=== PATIENT | male | born 1955 | race Caucasian/White ===

== ENCOUNTER 2025-01-01 12:07 | Emergency (ER) | payer MEDICARE, BC, SELFPAY ==
[2025-01-01 12:12] VITALS: BP 128/86; PULSE 63; RESP 18; TEMP 37; O2SAT 94
--- NOTE | 2025-01-01 12:45 | DI.RAD_ITS ---
Exam(s) XR CHEST 2V PA LATERAL EXAM: XR CHEST 2V PA LATERAL CLINICAL HISTORY: Cough with sputum. TECHNIQUE: 2D digital imaging was performed. COMPARISON: No exams were available for comparison FINDINGS: 2 views: Heart size is normal. The mediastinum is not widened. There is a somewhat tortuous descending thoracic aorta noted. Lungs are clear. No infiltrates nor pleural effusions. IMPRESSION: No acute pulmonary findings. DATA REPOSITORY: RADIATION DOSE DELIVERED:
--- NOTE | 2025-01-01 14:00 | W.ED.GENAD ---
Discharge Plan Disposition Patient Disposition: Home Condition: Stable Discharge Details Clinical Impression: Cough productive of clear sputum Primary Care Provider: [facility],Local ED Provider: Deirdre Kramer Home Meds and New Rx's Prescriptions: New azithromycin 250 mg tablet 250 mg PO DAILY 4 Days Qty: 4 0RF Rx Instructions: start on day 2 of therapy (01/02/2025) benzonatate 100 mg capsule 100 mg PO TID PRNQty: 14 0RF No Action lisinopril [Zestril] 5 MG tablet 20 mg PO DAILY chlorthalidone 25 MG tablet 25 mg PO DAILY Discharge Instructions Instructions: Acute bronchitis Additional Instructions: You were seen in the emergency department today for evaluation of a persistent cough with sputum production. In our department a full physical examination performed, and had an x-ray that was negative for signs of severe pneumonia. We are starting you on a medication to treat for cough as well as potential bronchitis given your history of occupational lung exposures. I recommend that when you return home to your primary care provider that they follow-up on this visit, and they may recommend ongoing workup and repeat or advanced imaging. Please take all the antibiotic until it is gone, even if you start to feel better. At this time, the patient has had a full medical evaluation and is safe for discharge to home. They are hemodynamically stable, ambulatory, and tolerating PO. They are understanding of the follow-up plan and return precautions. They left our facility without incident. Deirdre Kramer MD HPI General Mode of arrival: ambulatory. Date/Time Provider Initiated Documentation: 01/01/25 12:18. Limitations to Documentation: no limitations. Information obtained by: patient, family and old records reviewed. HPI Narrative: This is a 69-year-old male patient with a past medical history significant for hypertension presenting for evaluation of 2 weeks of cough. Patient reports that his cough is persistent throughout the day and night, is occasionally productive of clear sputum. He has not had any hemoptysis or chest pain. He has not noted any fevers or chills, no upper respiratory symptoms, has no personal pulmonary history. He does have a history of occupational exposure during 02/14, has never been diagnosed with any chronic lung diseases as a result of that. The patient has not tried any [id number] medicines, states that he has no history of allergies, GERD. He has been able to maintain his hydration. Related Data Home Medications ?Medication ?Instructions ?Recorded ?Confirmed chlorthalidone 25 mg tablet 25 mg PO DAILY 01/23/16 01/01/25 lisinopril 5 mg tablet (Zestril) 20 mg PO DAILY 01/23/16 01/01/25 azithromycin 250 mg tablet 250 mg PO DAILY 4 days #4 tabs 01/01/25 benzonatate 100 mg capsule 100 mg PO TID PRN #14 caps 01/01/25 Previous Rx's ?Medication ?Instructions ?Recorded azithromycin 250 mg tablet 250 mg PO DAILY 4 days #4 tabs 01/01/25 benzonatate 100 mg capsule 100 mg PO TID PRN #14 caps 01/01/25 Allergies Allergy/AdvReac Type Severity Reaction Status Date / Time No Known Allergies Allergy Unverified 01/01/25 12:17 General Stated Complaint: RespSymp RENETTA: 4 Exam Narrative Exam Narrative: Gen: Awake and alert, in no apparent distress HEENT: Non-icteric sclera Neck: Supple Lungs: No apparent respiratory distress, normal respiratory effort. Lung sounds clear and equal bilaterally without wheezes, rhonchi, rales CV: Appears well perfused, heart with regular rate and rhythm, no murmurs auscultated, strong distal pulses Abdomen: Non-distended MSK: Moves 4 extremities without apparent limitation in ROM Skin: Visualized skin without rashes, cyanosis. Neuro: Normal Gait, no obvious focal deficits or facial asymmetry. Speaks in full, clear sentences. Psych: Appropriate for situation. Course Vital Signs Vital signs: Vital Signs Temperature 37.0 C 01/01/25 12:12 Pulse 63 01/01/25 12:12 Respiratory Rate 18 01/01/25 12:12 Blood Pressure 128/86 01/01/25 12:12 Pulse Oximetry 94 01/01/25 12:12 Temperature 37.0 C 01/01/25 12:12 Temperature Source Oral 01/01/25 12:12 Pulse 63 01/01/25 12:12 Respiratory Rate 18 01/01/25 12:12 Blood Pressure 128/86 01/01/25 12:12 Blood Pressure Position Sitting 01/01/25 12:12 Pulse Oximetry 94 01/01/25 12:12 Oxygen Delivery Method Room Air 01/01/25 12:12 Oxygen Flow Rate 0 01/01/25 12:12 Medical Decision Making This is a 69-year-old male patient presenting for evaluation of a persistent cough. My differential includes but is not limited to infectious etiologies, considered upper respiratory infection, bronchitis, and pneumonia. No wheezing to suggest exacerbation of reactive airway disease, no evidence of fluid overload to suggest pulmonary edema or pleural effusion. Exam less consistent with pneumothorax. The patient has no tachycardia or new hypoxia no evidence of DVT to suggest PE. Considered pulmonary fibrosis and other pneumoconiosis secondary to his occupational exposures. No chest pain to suggest ACS. We will obtain a chest x-ray. I see no indication to proceed with viral testing as he has had 2 weeks of symptoms and are out of the window for Paxlovid or Tamiflu. At this time, I do not see an indication to proceed with laboratory studies or advanced imaging given patient's hemodynamic stability and reassuring physical examination. - X-ray obtained, showing no focal consolidations or other abnormalities to explain the patient's symptoms. I did discuss options for management with the patient. Given the sputum production and the duration of greater than 2 weeks I feel like treatment for acute bronchitis is reasonable, and we will provide him with a course of azithromycin. I also sent a prescription for Tessalon Perles for cough management. I counseled the patient to follow-up with his outpatient providers when he returns home, who may want to do further workup and management into the source of his cough and sputum production. At this time, the patient has had a full medical evaluation and is safe for discharge to home. They are hemodynamically stable, ambulatory, and tolerating PO. They are understanding of the follow-up plan and return precautions. They left our facility without incident. Deirdre Kramer MD [facility] All Active Problems (Updated 01/01/25 @ 14:00 by Deirdre Kramer MD) Cough productive of clear sputum (Acute) Social History Smoking/Tobacco Use Status: Never Smoking risk assessment performed?: Yes Alcohol Intake: current Alcohol Intake frequency: a few times a week Alcohol type: beer Drug use: Never Substance use type: does not use Housing: house Do you feel safe at home: Yes Do you feel safe in your relationship?: Yes
[2025-01-01] MEDS: Benzonatate 100 MG CAP 200 MG PO (14:09)
[2025-01-01] MEDS: Azithromycin 250 MG TAB 500 MG PO (14:10)
[2025-01-01 14:16] VITALS: BP 135/91; PULSE 64; RESP 12; O2SAT 97
== END 2025-01-01 14:17 | disposition home or self-care (01) ==
PROVIDERS: Emergency Provider Emergency Medicine
DX: R05.8 Other specified cough (principal)
CPT/HCPCS: 99283 ×2; 71046